=== PATIENT | male | born 1950 | race Caucasian/White ===

== ENCOUNTER → 2018-12-18 | Outpatient (CLI) | payer MEDICARE ==
--- NOTE | 2018-12-18 13:07 | PCVCIMAG ---
APPROVED REPORT Study performed: 12/18/2018 10:51:57 EXAM: Comprehensive 2D, Doppler, and color-flow Echocardiogram Patient Location: Echo lab Room #: 2Status: routine BSA: 2.02 HR: 77 bpmBP: 104/56 mmHg Rhythm: Atrial Fibrillation Other Information Study Quality: Fair Risk Factors: Cardiac Risk Factors: HTN, Hyperlipidemia Indications Abnormal ECG Prosthetic Valve COPD Atrial Fibrillation Dyspnea HX AVR x3, Pulmonic valve replacement HX: a flutter/ablation 2D Dimensions IVSd: 8.07 (7-11mm)LVOT Diam: 23.04 (18-24mm) LVDd: 40.28 mm PWd: 7.98 (7-11mm) LVDs: 19.29 (25-40mm) Left Atrium: 55.02 (27-40mm) Aortic Root: 21.00 mm LV Single Plane 4CH: 59.42 % LV Single Plane 2CH: 56.72 % Biplane EF: 57.8 % Volumes Left Atrial Volume (Systole) Single Plane 4CH: 105.56 mLSingle Plane 2CH: 69.10 mL Biplane LA Volume: 88.00 mLLA ESV Index: 43.00 mL/m2 Aortic Valve AoV Peak Bertrand.: 2.51 m/s AO Peak Gr.: 25.88 mmHgLVOT Max P.46 mmHg AO Mean Gr.: 15.20 mmHgLVOT Mean P.54 mmHg AO V2 Mean: 1.85 m/sLVOT Max V: 0.86 m/s AO V2 VTI: 53.02 cmLVOT Mean V: 0.58 m/s DAVID (VTI): 1.36 [id number] V1 VTI: 17.27 cm DAVID Vmax: 1.43 cm2 SV (LVOT): 71.97 mL Mitral Valve MV E Max Bertrand.: 1.38 m/s MV PHT: 49.29 ms MVA (PHT): 4.46 cm2 IVRT: 55.36 ms Pulmonary Valve PV Peak Bertrand.: 3.14 m/sPV Peak Gr.: 39.35 mmHg Tricuspid Valve TR Peak Bertrand.: 3.28 m/s TR Peak Gr.: 42.98 mmHg TV Vmax: 1.02 m/sPA Pressure: 50.00 mmHg Left Ventricle The left ventricle is normal size. There is normal LV segmental wall motion. There is normal left ventricular wall thickness. Left ventricular systolic function is normal. The left ventricular ejection fraction is within the normal range. LVEF is 55-60%. This study is not technically sufficient to allow evaluation of the LV diastolic function due to atrial fibrillation. Right Ventricle The right ventricle is normal size. The right ventricular systolic function is normal. Atria Left atrium is moderately dilated. Right atrium is moderately dilated. Aortic Valve Mechanical prosthetic valve in the aortic position. Peak velocity and mean gradient are in the upper limits of normal . No aortic regurgitation is present. There is no aortic valvular stenosis. Mitral Valve The mitral valve is normal in structure. There is no mitral valve regurgitation noted. No evidence of mitral valve stenosis. Tricuspid Valve The tricuspid valve is normal in structure. Mild to moderate tricuspid regurgitation with a PA pressure of 40 mmHg. Pulmonic Valve Prosthetic valve in the pulmonic position with increased velocity and gradient. Probable Mild to moderate pulmonic stenosis. Trace pulmonic regurgitation. Great Vessels The aortic root is normal in size. Ascending aorta is not well visualized. Aortic arch is not well visualized. IVC is normal in size and collapses >50% with inspiration. Pericardium There is no pericardial effusion. There is no pleural effusion. <Conclusion> The left ventricle is normal size. There is normal left ventricular wall thickness. Left ventricular systolic function is normal. The right ventricle is normal size. Left atrium is moderately dilated. Right atrium is moderately dilated. Mechanical prosthetic valve in the aortic position. Peak velocity and mean gradient are in the upper limits of normal . There is no mitral valve regurgitation noted. Mild to moderate tricuspid regurgitation with a PA pressure of 40 mmHg. Prosthetic valve in the pulmonic position with increased velocity and gradient.
== END | disposition home or self-care (01) ==
LOC: PCVCIMAG 10:49
PROVIDERS: ATTEND Family Medicine
DX: I07.1 Rheumatic tricuspid insufficiency (principal); J96.12 Chronic respiratory failure with hypercapnia; J18.1 Lobar pneumonia, unspecified organism; I48.2 Chronic atrial fibrillation
CPT/HCPCS: 93306